=== PATIENT | female | born 1960 | race Two or more races ===

== ENCOUNTER → 2016-11-17 | Outpatient (CLI) | payer MEDICAID | LOC: WI 12:52 | PROVIDERS: ATTEND Physician Assistant | DX: Z12.31 Encounter for screening mammogram for malignant neoplasm of breast (principal) | CPT/HCPCS: 77067; G0202 ==

== ENCOUNTER → 2016-11-17 | Outpatient (CLI) | payer MEDICAID ==
--- NOTE | 2016-11-17 12:34 | RADIOLOGY REPORT (SQ) ---
EXAM DESCRIPTION: HIP LEFT AP/LATERAL COMPLETED DATE/TIME: 11/17/2016 11:58 am REASON FOR STUDY: LEFT HIP PAIN M25.552 PAIN IN LEFT HIP COMPARISON: None. NUMBER OF VIEWS: Two views. TECHNIQUE: AP pelvis and additional frog-leg view of the left hip. LIMITATIONS: None. FINDINGS: MINERALIZATION: Osteopenic LEFT HIP: No fracture or dislocation. No significant joint space narrowing or bony spurring. RIGHT HIP: No fracture or dislocation. No significant joint space narrowing or bony spurring. PUBIS AND ISCHIUM: No fracture. PELVIS: No fracture. SACRUM: No fracture or dislocation. No worrisome bone lesions. LOWER LUMBAR SPINE: Post lower lumbar fusion at L5-S1. Advanced degenerative disc changes left great er than right at L4-5 SOFT TISSUES: No findings. OTHER: No other significant finding. IMPRESSION: Negative study of the pelvis and left hip. Degenerative disc changes at L4-5. Prior fusion at L5-S1 TECHNICAL DOCUMENTATION: JOB ID: [id number] [employer]- All Rights Reserved
== END ==
LOC: OD 11:43
PROVIDERS: ATTEND Physician Assistant
DX: M25.552 Pain in left hip (principal)

== ENCOUNTER → 2017-07-20 | Outpatient (CLI) | payer MEDICAID ==
--- NOTE | 2017-07-20 08:49 | RADIOLOGY REPORT (SQ) ---
EXAM DESCRIPTION: U/S ABDOMEN LIMITED W/O DOP COMPLETED DATE/TIME: 07/20/2017 8:07 am REASON FOR STUDY: RUQ PAIN (R10.11) R10.11 RIGHT UPPER QUADRANT PAIN COMPARISON: None. TECHNIQUE: Dynamic and static grayscale images acquired of the abdomen and recorded on PACS. Additio nal selected color Doppler and spectral images recorded. LIMITATIONS: None. FINDINGS: PANCREAS: Midline pancreas unremarkable LIVER: Diffuse increased echogenicity from fatty infiltration. Liver difficult to penetrate with the ultrasound energy. There is focal sparing at the gallbladder fossa. LIVER VASCULATURE: Normal directional flow of the main portal vein and hepatic veins. GALLBLADDER: Contracted, multiple stones. Borderline wall thickening. ULTRASOUND-DETECTED SUGGS'S SIGN: Negative. INTRAHEPATIC DUCTS AND COMMON DUCT: CBD and intrahepatic ducts normal caliber. No filling defects. INFERIOR VENA CAVA: Normal flow. AORTA: No aneurysm. RIGHT KIDNEY: Normal size. Normal echogenicity. No solid or suspicious masses. No hydronephrosis. No calcifications. PERITONEAL AND RIGHT PLEURAL SPACE: No ascites or effusions. OTHER: No other significant findings. IMPRESSION: Fatty liver with focal sparing along the gallbladder fossa Stones in the gallbladder TECHNICAL DOCUMENTATION: JOB ID: [id number] [employer]- All Rights Reserved Reading location - IP/workstation name: [email or web address]
== END ==
LOC: RAD 07:42
PROVIDERS: ATTEND Physician Assistant
DX: K80.20 Calculus of gallbladder without cholecystitis without obstruction (principal); R10.11 Right upper quadrant pain; K76.0 Fatty (change of) liver, not elsewhere classified
CPT/HCPCS: 76705

== ENCOUNTER 2017-08-16 05:19 | Day surgery (SDC) | payer MEDICAID ==
--- NOTE | 2017-08-09 12:34 | RADIOLOGY REPORT (SQ) ---
EXAM DESCRIPTION: CHEST PA/LATERAL COMPLETED DATE/TIME: 08/09/2017 9:31 am REASON FOR STUDY: PRE OP COMPARISON: None. EXAM PARAMETERS: NUMBER OF VIEWS: two views TECHNIQUE: Digital Frontal and Lateral radiographic views of the chest acquired. RADIATION DOSE: NA LIMITATIONS: none FINDINGS: LUNGS AND PLEURA: No opacities, masses or pneumothorax. No pleural effusion. MEDIASTINUM AND HILAR STRUCTURES: No masses or contour abnormalities. HEART AND VASCULAR STRUCTURES: Heart normal size. No evidence for failure. BONES: No acute findings. HARDWARE: None in the chest. OTHER: No other significant finding. IMPRESSION: NO SIGNIFICANT RADIOGRAPHIC FINDING IN THE CHEST. TECHNICAL DOCUMENTATION: JOB ID: [id number] [employer]- All Rights Reserved Reading location - IP/workstation name: [email or web address]
--- NOTE | 2017-08-09 13:43 | EKG REPORT ---
SEVERITY:- NORMAL ECG - SINUS RHYTHM : Confirmed by: Dilshad Magallanes MD 09-Aug-2017 13:42:12
[~2017-08-16 05:19] MED LIST: ACETAMINOPHEN 325 MG TABLET PO PRN; LIDOCAINE 0.5% INJ-PF (5 MG/ML) 50 ML SDV SUBCUT PRN; NORMAL SALINE 1000 ML (RENAL PATIENTS) IV PRN; VANCOMYCIN HCL 1,000 MG in DEXTROSE 5%-WATER 250 ML IV PRN
[2017-08-16] MEDS ORDERED: BUPIVACAINE HCL 0.25 % INJ/PF (2.5 MG/1 ML) 30 ML VIAL ONE (06:31)
[2017-08-16] MEDS ORDERED: FENTANYL CITRATE INJ/PF 100 MCG/2 ML AMPUL ONE (06:41)
[2017-08-16] MEDS ORDERED: LIDOCAINE 2% INJ-PF (20 MG/ML) 10 ML AMPUL ONE (06:41)
[2017-08-16] MEDS ORDERED: ONDANSETRON HCL INJ/PF 4 MG/2 ML SDV ONE (06:42)
[2017-08-16] MEDS ORDERED: MIDAZOLAM 2 MG/2 ML INJ ONE (06:42)
[2017-08-16] MEDS ORDERED: ACETAMINOPHEN 1,000 MG/100 ML RTUPB IV ONE (06:42)
[2017-08-16] MEDS ORDERED: DEXAMETHASONE SOD PHOSPHATE INJ 4 MG/1 ML VIAL ONE (06:42)
[2017-08-16] MEDS ORDERED: PROPOFOL INJ 200 MG/20 ML VIAL IV ONE (06:42)
[2017-08-16] MEDS ORDERED: OXYCODONE-ACETAMINOPHEN 5-325 MG TABLET PO PRN ×2 (07:46)
[2017-08-16] MEDS ORDERED: MORPHINE SULFATE 10 MG/ML INJ IV PRN (07:46)
[2017-08-16] MEDS ORDERED: PROMETHAZINE HCL INJ 25 MG/1 ML VIAL IV PRN ×2 (07:46)
[2017-08-16] MEDS ORDERED: MEPERIDINE HCL/PF INJ 25 MG/1 ML DISP.SYRIN IV PRN (07:46)
[2017-08-16] MEDS ORDERED: ONDANSETRON HCL INJ/PF 4 MG/2 ML SDV IV PRN (07:46)
[2017-08-16] MEDS ORDERED: DIPHENHYDRAMINE HCL 50 MG/ML VIAL IV PRN (07:46)
[2017-08-16] MEDS ORDERED: FENTANYL CITRATE INJ/PF 100 MCG/2 ML AMPUL IV PRN ×3 (07:46)
--- NOTE | 2017-08-16 08:38 | Discharge Summary ---
Discharge Summary (SDC) - Discharge Final Diagnosis: symptomatic cholelithiasis Condition: Stable Treatment or Instructions: Discharge home. Diet as tolerated. Activity: No lifting greater than 10 pounds 2 weeks. Okay to shower on Sunday, wash incisions with soap and water. No tub baths or swimming pools 2 weeks. Follow-up at [facility] in 7-10 days. Referrals: YENIFER MO MD [Primary Care Provider] - Respiratory Treatments at Home: Deep Breathing/Coughing, Incentive Spirometer Discharge Activity: No Lifting Over 10 Pounds Home Care Assistance: None Needed Report the Following to Your Physician Immediately: Shortness of Breath, Nausea , Vomiting, Increase in Pain, Fever over 101 Degrees, Redness, Swelling, Warmth
[2017-08-16] MEDS ORDERED: HYDROCODONE/ACETAMINOPHEN 10-325 MG TABLET ONE (09:51)
[2017-08-16 10:44] VITALS: BP 126/60
[2017-08-16] MEDS ORDERED: METOCLOPRAMIDE HCL INJ/PF 10 MG/2 ML SDV ONE (12:30)
[2017-08-16] MEDS ORDERED: KETOROLAC TROMETHAMINE 60 MG/2 ML SDV ONE (12:30)
[2017-08-16] MEDS ORDERED: VECURONIUM BROMIDE INJ 10 MG VIAL IV ONE (12:30)
[2017-08-16] MEDS ORDERED: NEOSTIGMINE METHYLSULFATE 10 MG/10 ML VIAL ONE (12:30)
[2017-08-16] MEDS ORDERED: SUCCINYLCHOLINE CHLORIDE INJ 200 MG/10 ML VIAL ONE (12:30)
[2017-08-16] MEDS ORDERED: GLYCOPYRROLATE INJ 0.4 MG/2 ML VIAL ONE (12:30)
--- NOTE | 2017-08-16 13:04 | Operative Report ---
Nonrecallable Operative Report DATE OF SURGERY: 08/16/17 PREOPERATIVE DIAGNOSIS: Symptomatic cholelithiasis POSTOPERATIVE DIAGNOSIS: Same as above OPERATION: Laparoscopic cholecystectomy SURGEON: ALLEY LONGORIA ANESTHESIA: GA TISSUE REMOVED OR ALTERED: Gallbladder COMPLICATIONS: None apparent ESTIMATED BLOOD LOSS: Minimal PROCEDURE: Drains/implants: None. Procedure in detail: After informed consent was obtained, the patient was laid in the operating room in the supine position. The area of the abdomen was prepped and draped in a normal sterile fashion. Incision was created in the supraumbilical position. Dissection was carried through the subcutaneous tissue using blunt dissection. The cicatrix was identified, grasped with a Sukhjinder clamp, and retracted upwards. The linea alba fascia was incised sharply. The abdomen was entered sharply. The balloon trocar was inserted, and pneumoperitoneum was achieved. A subxiphoid 5 mm port was placed under direct laparoscopic visualization. 2 more 5 mm ports were placed in the right upper quadrant in similar fashion. Atraumatic graspers were placed in the 5 mm ports. The gallbladder was retracted cephalad and laterally. Dissection was begun in the triangle of Calot. The cystic duct and cystic artery were fully visualized and skeletonized , seeing the liver through the triangle. Once the critical view of safety was obtained, the cystic duct and cystic artery were clipped and cut with arthroscopic instruments. The gallbladder was then removed from the liver using Bovie electrocautery. The gallbladder was then placed into an Endo Catch bag and pulled out the umbilicus. The camera was reinserted. The hilum was inspected and was found to be free of any leakage of blood or bile. The 5 mm trochars were removed under direct laparoscopic visualization. The supraumbilical trocar was removed, and pneumoperitoneum was relieved. The supraumbilical fascia was closed using 0 Vicryl suture in [id number] fashion the overlying skin was closed using 4-0 Vicryl Rapide suture in subcuticular fashion all sponge, instrument, and needle counts were correct 2. Condition: Stable.
== END 2017-08-16 11:00 | disposition home or self-care (01) ==
LOC: OROUT 05:19
PROVIDERS: ATTEND Surgery
DX: K80.10 Calculus of gallbladder with chronic cholecystitis without obstruction (principal); E11.9 Type 2 diabetes mellitus without complications; E78.00 Pure hypercholesterolemia, unspecified; J45.909 Unspecified asthma, uncomplicated; M19.90 Unspecified osteoarthritis, unspecified site; K21.9 Gastro-esophageal reflux disease without esophagitis; Z88.0 Allergy status to penicillin; Z79.899 Other long term (current) drug therapy; Z79.84 Long term (current) use of oral hypoglycemic drugs
CPT/HCPCS: 93005; 82962; 88304 ×2; 71046; 93010; 47562; J2250; J1100; J1885; J3010; J3490 ×3; J2765; J0330; J2405; S0020; J7060; J2704; J3370; J0131; 790

== ENCOUNTER → 2018-01-11 | Outpatient (CLI) | payer MEDICAID ==
--- NOTE | 2018-01-11 09:38 | WOMENS IMAGING REPORT ---
EXAM DESCRIPTION: BILAT SCREENING MAMMO W/CAD COMPLETED DATE/TIME: 01/11/2018 7:51 am REASON FOR STUDY: BILATERAL SCREENING Z12.31 Z12.31 ENCNTR SCREEN MAMMOGRAM FOR MALIGNANT NEOPLASM OF DIMA COMPARISON: 11/17/2016. TECHNIQUE: Standard craniocaudal and mediolateral oblique views of each breast recorded using Zeoa l acquisition. LIMITATIONS: None. FINDINGS: No masses, calcifications or architectural distortion. No areas of suspicion. Read with the assistance of CAD. .[facility] - R2 Cenova Version 1.3 .[facility] - R2 Cenova Version 1.3 .[facility] - R2 Cenova Version 2.4 .[facility] - R2 Cenova Version 2.4 .[facility] - R2 Licensed Veterinary Technician Version 9.2 IMPRESSION: NORMAL MAMMOGRAM. BIRADS 1. BREAST DENSITY: b. There are scattered areas of fibroglandular density. BIRAD: 1 NEGATIVE RECOMMENDATION: ROUTINE SCREENING COMMENT: The patient has been notified of the results by letter per SA requirements. Additional no tification policies are in place for contacting patient with suspicious or incomplete findings. Quality ID #225: The [employer] recommends an annual screening mammogram for women aged 40 years or over. This facility utilizes a reminder system to ensure that all patients receive reminder letters, and/or direct phone calls for appointments. This includes reminders for routine scr eening mammograms, diagnostic mammograms, or other Breast Imaging Interventions when appropriate. Th is patient will be placed in the appropriate reminder system. The [employer] (ACR) has developed recommendations for screening MRI of the breast s in certain patient populations, to be used in conjunction with mammography. Breast MRI surveillanc e may be appropriate for women with more than 20% lifetime risk of developing breast cancer as deter mined by genetic testing, significant family history of the disease, or history of mantle radiation f or Hodgkins Disease. ACR Practice Guidelines 2008. TECHNICAL DOCUMENTATION: FINDING NUMBER: (1) ASSESSMENT: (1) JOB ID: [id number] [employer]- All Rights Reserved Reading location - IP/workstation name: [email or web address]
== END ==
LOC: WI 07:30
PROVIDERS: ATTEND Physician Assistant
DX: Z12.31 Encounter for screening mammogram for malignant neoplasm of breast (principal)
CPT/HCPCS: 77067

== ENCOUNTER 2018-02-26 20:15 | Inpatient (IN) | payer MEDICAID ==
[2018-02-26] MEDS ORDERED: ASPIRIN 81 MG TABLET, CHEWABLE PO ONE (20:25)
[2018-02-26] MEDS ORDERED: DILTIAZEM HCL INJ 25 MG/5 ML VIAL ONE (20:28)
[2018-02-26] MEDS ORDERED: DILTIAZEM HCL INJ 25 MG/5 ML VIAL IV ONE (20:30)
--- NOTE | 2018-02-26 20:38 | ER Document Report ---
ED Cardiac - General Chief Complaint: Chest Pressure Stated Complaint: PALPITATIONS Time Seen by Provider: 02/26/18 20:27 Notes: 57-year-old female patient emergency department chief complaint of shortness of breath, palpitations and chest pain. Pain was radiating up into her neck. Patient states symptoms came on relatively suddenly. Has never had anything like this before. History of chronic pain, diabetes and hyperlipidemia. Followed by Dr. Garcia and his physician's leasing assistant. No recent surgeries. No prior history of DVT or pulmonary embolism. No prior history of heart disease. TRAVEL OUTSIDE OF THE [place] IN LAST 30 DAYS: No - HPI Patient complains to provider of: Chest pain, Chest tightness, Palpitations, Shortness of breath Was the onset of pain: Sudden Chest pain location: Substernal Quality of pain: Constant Chest pain radiation location: Left jaw, Left shoulder Severity now: Severe Severity at worst: Severe Pain level currently: 2 Associated symptoms: Jaw pain, Shortness of breath Relieved by: Nothing Similar symptoms previously: No Recently seen / treated by doctor: No - Related Data Allergies/Adverse Reactions: cephalexin [From Keflex] Adverse Reaction (Verified 02/26/18 20:30) Penicillins Adverse Reaction (Verified 02/26/18 20:30) Past Medical History - General Information source: Patient - Social History Smoking Status: Smoker,Current Status Unk Frequency of alcohol use: None Drug Abuse: None Lives with: Family Family History: Hypertension - Past Medical History Cardiac Medical History: Denies: Hx Coronary Artery Disease, Hx Heart Attack, Hx Hypertension Pulmonary Medical History: Reports: Hx Asthma - MILD, Hx Bronchitis Denies: Hx COPD, Hx Pneumonia Neurological Medical History: Denies: Hx Cerebrovascular Accident, Hx Seizures Endocrine Medical History: Reports: Hx Diabetes Mellitus Type 2 Musculoskeletal Medical History: Reports Hx Arthritis - GENERALIZED - Immunizations Hx Diphtheria, Pertussis, Tetanus Vaccination: Yes Review of Systems - Review of Systems Notes: Constitutional: denies: Chills, Diaphoresis, Fever, Malaise, Weakness EENT: denies: Eye discharge, Blurred vision, Tearing, Double vision, Nose congestion, Nose discharge, Throat swelling, Mouth pain Cardiovascular: Positive for chest pain, palpitations and shortness of breath Respiratory: denies: Cough, Hurts to breathe, Wheezing, positive for shortness of breath Gastrointestinal: denies: Abdominal pain, Diarrhea, Nausea, Vomiting, Black stools, bright red blood in stool Genitourinary: denies: Burning, Dysuria, Discharge, Frequency, Flank pain, Hematuria Musculoskeletal: denies: Joint pain, Joint swelling, Muscle pain, Muscle stiffness, back pain Hematologic/Lymphatic: denies: Anemia, Easy bleeding, Easy bruising, Blood clots Neurological/Psychological: denies: Confusion, Dementia, Depression, Loss of consciousness Skin: No lesions, no masses, no skin breakdown, no abscesses Physical Exam - Vital signs Vitals: Temp 98.8 F 02/26/18 20:25 Interpretation: Tachycardic - General General appearance: Appears well, Alert - HEENT Head: Normocephalic, Atraumatic Eyes: Normal Pupils: PERRL - Respiratory Respiratory status: No respiratory distress Chest status: Nontender Breath sounds: Normal Chest palpation: Normal - Cardiovascular Rhythm: Tachycardia Heart sounds: Normal auscultation Murmur: No - Abdominal Inspection: Normal Distension: No distension Bowel sounds: Normal Tenderness: Nontender Organomegaly: No organomegaly - Back Back: Normal, Nontender - Extremities General upper extremity: Normal inspection, Nontender, Normal color, Normal ROM , Normal temperature General lower extremity: Normal inspection, Nontender, Normal color, Normal ROM , Normal temperature. No: Rhea's sign - Neurological Neuro grossly intact: Yes Cognition: Normal Orientation: AAOx4 Nicole Coma Scale Eye Opening: Spontaneous Nicole Coma Scale Verbal: Oriented [place] Coma Scale Motor: Obeys Commands Nicole Coma Scale Total: 15 Speech: Normal Motor strength normal: LUE, RUE, LLE, RLE Sensory: Normal - Psychological Associated symptoms: Normal affect, Normal mood - Skin Skin Temperature: Warm Skin Moisture: Dry Skin Color: Normal Course - Re-evaluation Re-evalutation: 02/26/18 21:43 seen immediately on arrival. Bedside EKG performed. Patient initially had sinus tachycardia with a heart rate in the 120s on first EKG of her after EKG was obtained I was at the bedside and noted that patient's heart rate was 190. Patient was having shortness of breath. You could see the heart beating extremely fast. Verbal order of 15 mg of diltiazem given. Within 5 minutes of medication being given patient's heart rate began to come down nicely. Patient converted to normal sinus rhythm with a heart rate of 91 on repeat EKG. No signs of ischemia. Labs returned and showed mildly elevated cardiac troponin. Based on the fact the patient is obese, diabetic with supposed hyperlipidemia and there was concern that she would need to be observed as this is never happened before. I have consulted with her primary care doctor, Dr. Garcia who recommends we order a second set of cardiac labs and if it is not going up significantly he will admit her here if it is going up more than expected then he would like her transferred. I anticipate the troponin will go up. Aspirin has been given. Patient is receiving a small fluid bolus at this time. 02/26/18 21:45 Laboratory 02/26/18 02/26/18 02/26/18 20:31 20:31 20:31 WBC 8.9 RBC 4.86 Hgb 14.7 Hct 43.1 MCV 89 MCH 30.3 MCHC 34.2 RDW 12.7 Plt Count 281 Seg Neutrophils % 60.7 Lymphocytes % 29.3 Monocytes % 8.6 Eosinophils % 0.4 Basophils % 1.0 Absolute Neutrophils 5.4 Absolute Lymphocytes 2.6 Absolute Monocytes 0.8 Absolute Eosinophils 0.0 Absolute Basophils 0.1 Sodium 145.5 H Potassium 3.9 Chloride 107 Carbon Dioxide 27 Anion Gap 12 BUN 15 Creatinine 0.75 Est GFR ( Amer) > 60 Est GFR (Non-Af Amer) > 60 Glucose 187 H Calcium 9.9 Total Bilirubin 0.6 Direct Bilirubin 0.4 Neonat Total Bilirubin Not Reportable Neonat Direct Bilirubin Not Reportable Neonat Indirect Bili Not Reportable AST 42 H ALT 42 Alkaline Phosphatase 150 H Creatine Kinase 108 CK-MB (CK-2) 0.49 Troponin I 0.062 Total Protein 8.0 Albumin 4.7 Chest X-Ray 02/26/18 20:25 IMPRESSION: No acute abnormality is identified. 02/26/18 22:56 Chest X-Ray 02/26/18 20:25 IMPRESSION: No acute abnormality is identified. Chest/Abdomen CTA 02/26/18 22:00 IMPRESSION: Cardiomegaly. Negative for pulmonary embolus, thoracic aortic aneurysm, or dissection. Minor scarring in the lung bases. Fatty infiltrative change to the liver. Small hiatal hernia TECHNICAL DOCUMENTATION: Quality ID # 436: Final reports with documentation of one or more dose reduction techniques (e.g., Automated exposure control, adjustment of the mA and/or kV according to patient size, use of iterative reconstruction technique) copyright 2010 [employer]- All Rights Reserved 02/27/18 00:23 Second troponin [address] Garcia. Patient remains chest pain- free and asymptomatic at this time. Normal sinus rhythm. Heart rate still controlled and no more SVT. 02/27/18 00:31 I have consulted with the precinct police captain, Dr. Valdivia. He is comfortable with patient being admitted here. Will proceed with admit at this time. CT scan negative as recorded above. - Vital Signs Vital signs: Temp Pulse Resp BP Pulse Ox 98.8 F 17 131/76 H 98 02/26/18 20:25 02/27/18 00:01 02/27/18 00:01 02/27/18 00:01 - Laboratory Result Diagrams: 02/26/18 20:31 02/26/18 20:31 Laboratory results interpreted by me: 02/26/18 20:31 Sodium 145.5 H Glucose 187 H AST 42 H Alkaline Phosphatase 150 H - EKG Interpretation by Me EKG shows normal: Intervals, QRS Complexes, ST-T Waves Rate: Tachycardia Additional EKG results interpreted by me: 02/26/18 21:45 Repeat EKG #2: Sinus rhythm, heart rate 91, no ST segment elevation or depression. No obvious signs of ischemia. Procedures - Additional Procedures Cardioversion/Defib Time performed: 20:45 Additional Procedures: Cardioversion/defib - Patient in PSVT. Cardioverted with 15 mg of diltiazem Critical Care Note - Critical Care Note Total time excluding time spent on procedures (mins): 35 Comments: Extreme tachycardia, cardioversion Discharge - Discharge Clinical Impression: Paroxysmal SVT (supraventricular tachycardia), Elevated troponin Condition: Good Disposition: ADMITTED INPATIENT Admitting Provider: Jose Unit Admitted: Telemetry
[2018-02-26 20:45] LABS: ABSOLUTE BASOPHILS # (AUTO) 0.1 10^3/uL (0.0-0.2); ABSOLUTE LYMPHOCYTES (AUTO) 2.6 10^3/uL (0.5-4.7); ABSOLUTE MONOCYTES (AUTO) 0.8 10^3/uL (0.1-1.4); ABSOLUTE NEUT (AUTO) 5.4 10^3/uL (1.7-8.2); EOSINOPHILS % (AUTO) 0.4 % (0-6); HEMATOCRIT 43.1 % (36.0-47.0); HEMOGLOBIN 14.7 g/dL (12.0-15.5); LYMPHOCYTES % (AUTO) 29.3 % (13-45); MEAN CORPUSCULAR HEMOGLOBIN 30.3 pg (27.0-33.4); MEAN CORPUSCULAR HGB CONC 34.2 g/dL (32.0-36.0); MEAN CORPUSCULAR VOLUME 89 fl (80-97); MONOCYTES % (AUTO) 8.6 % (3-13); PLATELET COUNT 281 10^3/uL (150-450); RED BLOOD COUNT 4.86 10^6/uL (3.72-5.28); RED CELL DISTRIBUTION WIDTH 12.7 % (11.5-14.0); SEGMENTED NEUTROPHILS % (AUTO) 60.7 % (42-78); TOTAL CELLS COUNTED % (AUTO) 100 %; WHITE BLOOD COUNT 8.9 10^3/uL (4.0-10.5)
[2018-02-26 21:04] LABS: ALANINE AMINOTRANSFERASE 42 U/L (9-52); ALBUMIN 4.7 g/dL (3.5-5.0); ALKALINE PHOSPHATASE 150 U/L (38-126); ANION GAP 12 (5-19); ASPARTATE AMINO TRANSFERASE 42 U/L (14-36); BILIRUBIN,DIRECT 0.4 mg/dL (0.0-0.4); BILIRUBIN,TOTAL 0.6 mg/dL (0.2-1.3); BLOOD UREA NITROGEN 15 mg/dL (7-20); CALCIUM 9.9 mg/dL (8.4-10.2); CARBON DIOXIDE 27 mmol/L (22-30); CHLORIDE 107 mmol/L (98-107); CREATINE KINASE 108 U/L (30-135); GLUCOSE 187 mg/dL (75-110); POTASSIUM 3.9 mmol/L (3.6-5.0); SODIUM 145.5 mmol/L (137-145)
[2018-02-26 21:14] LABS: CREATINE KINASE MB 0.49 ng/mL (<4.55)
[2018-02-26 21:21] LABS: TROPONIN I 0.062 ng/mL
--- NOTE | 2018-02-26 21:27 | RADIOLOGY REPORT (SQ) ---
EXAM DESCRIPTION: XR CHEST 1 VIEW COMPLETED DATE/TME: 02/26/2018 20:25 CLINICAL HISTORY: 57 years Female cp COMPARISON: 08/09/2017. FINDINGS: The cardiomediastinal silhouette appears unremarkable. No consolidating infiltrates or pleural effusions. No pneumothorax. IMPRESSION: No acute abnormality is identified.
[2018-02-26] MEDS ORDERED: NORMAL SALINE 1000 ML 1,000 ML IV ONE (21:38)
[2018-02-26] MEDS ORDERED: NORMAL SALINE 1000 ML 1,000 ML IV PRN (21:50)
[2018-02-26] MEDS ORDERED: DEXTROSE 40% GEL 15 GM TUBE PO PRN ×2 (21:55)
[2018-02-26] MEDS ORDERED: GLUCAGON,HUMAN RECOMB 1 MG INJ IM PRN (21:55)
[2018-02-26] MEDS ORDERED: DEXTROSE 50%-WATER 25 GM/50 ML DISP.SYRIN IV PRN ×2 (21:55)
[2018-02-26] MEDS ORDERED: INSULIN LISPRO 100 UNIT/ML 3 ML VIAL SUBCUT PRN (21:55)
[2018-02-26] MEDS ORDERED: DILTIAZEM HCL 30 MG TABLET PO ONE (22:00)
[2018-02-26 22:41] LABS: FREE T3 3.27 pg/mL (2.77-5.27); FREE T4 (FREE THYROXINE) 1.25 ng/dL (0.78-2.19)
--- NOTE | 2018-02-26 22:48 | RADIOLOGY REPORT (SQ) ---
EXAM DESCRIPTION: CT CHEST ANGIOGRAPHY WITHOUT THEN WITH IV CONTRAST COMPLETED DATE/TME: 02/26/2018 22:00 CLINICAL HISTORY: 57 years, Female, cp, tachyc COMPARISON: None. TECHNIQUE: 536 Images stored on PACS. All CT scanners at this facility use dose modulation, iterative reconstruction, and/or weight based dosing when appropriate to reduce radiation dose to as low as reasonably achievable (ALARA). Axial CT images were obtained with coronal and sagittal MIPS reconstructions [facility]: Dose Right [facility]: CareDose [facility]: Dose Right [facility]: Teradose 4D [facility]: [employer] LIMITATIONS: None. FINDINGS: Contrast bolus is suboptimal. However there is no large or central pulmonary embolus. Evaluation of distal arterial branches is limited. No convincing evidence for pulmonary most. Negative for thoracic aortic aneurysm or dissection. Small hiatal hernia. Cardiomegaly. No mediastinal or hilar adenopathy. Limited evaluation of the upper abdomen shows postcholecystectomy changes. Fatty infiltrative change to the liver. Osseous structures are grossly intact. No pneumothorax. The visualized airways are patent. Minor scarring in the lung bases. Lungs are otherwise clear IMPRESSION: Cardiomegaly. Negative for pulmonary embolus, thoracic aortic aneurysm, or dissection. Minor scarring in the lung bases. Fatty infiltrative change to the liver. Small hiatal hernia TECHNICAL DOCUMENTATION: Quality ID # 436: Final reports with documentation of one or more dose reduction techniques (e.g., Automated exposure control, adjustment of the mA and/or kV according to patient size, use of iterative reconstruction technique) copyright 2011 [employer]- All Rights Reserved
[2018-02-26 22:54] LABS: THYROID STIMULATING HORMONE 2.33 uIU/mL (0.47-4.68)
--- NOTE | 2018-02-26 23:36 | EKG REPORT ---
SEVERITY:- NORMAL ECG - SINUS RHYTHM : Confirmed by: Sara Valdivia MD 26-Feb-2018 23:35:24
--- NOTE | 2018-02-26 23:37 | EKG REPORT ---
SEVERITY:- DEFECTIVE ECG - SINUS TACHYCARDIA MULTIPLE ATRIAL PREMATURE COMPLEXES V1 AND V2 LEADS INTERCHANGED.REPEAT EKG. : Confirmed by: Sara Valdivia MD 26-Feb-2018 23:36:29
[2018-02-27 00:03] LABS: CREATINE KINASE MB 0.51 ng/mL (<4.55)
[2018-02-27 00:20] LABS: TROPONIN I 0.132 ng/mL
[2018-02-27] MEDS: DILTIAZEM HCL 30 MG TABLET PO SCH ×3 (05:31→21:18)
[2018-02-27 05:54] LABS: HEMATOCRIT 36.4 % (36.0-47.0); MEAN CORPUSCULAR HEMOGLOBIN 30.3 pg (27.0-33.4); MEAN CORPUSCULAR HGB CONC 34.4 g/dL (32.0-36.0); MEAN CORPUSCULAR VOLUME 88 fl (80-97); PLATELET COUNT 203 10^3/uL (150-450); RED BLOOD COUNT 4.13 10^6/uL (3.72-5.28); RED CELL DISTRIBUTION WIDTH 12.5 % (11.5-14.0); WHITE BLOOD COUNT 7.2 10^3/uL (4.0-10.5)
[2018-02-27 05:56] LABS: HEMOGLOBIN 12.5 g/dL (12.0-15.5)
[2018-02-27 06:08] LABS: ALANINE AMINOTRANSFERASE 32 U/L (9-52); ALBUMIN 3.3 g/dL (3.5-5.0); ALKALINE PHOSPHATASE 99 U/L (38-126); ANION GAP 6 (5-19); ASPARTATE AMINO TRANSFERASE 25 U/L (14-36); BILIRUBIN,DIRECT 0.3 mg/dL (0.0-0.4); BILIRUBIN,TOTAL 0.6 mg/dL (0.2-1.3); BLOOD UREA NITROGEN 10 mg/dL (7-20); CALCIUM 8.7 mg/dL (8.4-10.2); CARBON DIOXIDE 26 mmol/L (22-30); CHLORIDE 112 mmol/L (98-107); CHOLESTEROL 152.87 mg/dL (0-200); CREATINE KINASE 98 U/L (30-135); GLUCOSE 109 mg/dL (75-110); POTASSIUM 3.8 mmol/L (3.6-5.0); SODIUM 144.1 mmol/L (137-145); TOTAL PROTEIN 5.9 g/dL (6.3-8.2); TRIGLYCERIDES 81 mg/dL (<150)
[2018-02-27 06:18] LABS: CREATINE KINASE MB 0.75 ng/mL (<4.55); TROPONIN I 0.119 ng/mL
[2018-02-27 06:19] LABS: DIRECT LDL 86 mg/dL (<100)
[2018-02-27] MEDS ORDERED: NORMAL SALINE 1000 ML 1,000 ML IV PRN (08:53)
--- NOTE | 2018-02-27 08:53 | PDOC H&P ---
History of Present Illness Admission Date/PCP: 02/26/18 22:07 YENIFER MO MD Patient complains of: Chest pain palpitation History of Present Illness: LYNDSEY BILLINGSLEY is a 57 year old female This is a 57-year-old female with a history of the type 2 diabetes mellitus recent A1c is 6.4 history of the hypertension's history of the hyperlipidemia with the recent LDL is less than 100 and a history of the chronic back issues came to the emergency department with a sudden onset of the shortness of the breath and palpitations and a chest pain In the emergency department patient's found to SVT with a heart rate is 190 and patient is giving the Cardizem 25 mg and converted to the sinus rhythm Patient CT angiogram is negative Patient's initial troponins were 0.06 and the second 1 is 0.132 and the ER physician discussed with the Dr. Valdivia and suggest to monitor the patient here When I saw the patient patient heart rate is all normal denied any chest pain denied any shortness of the breath Patient is denied any using any [id number] medications Patient is denied any alcohol Patient denied any heart disease in the past Past Medical History Cardiac Medical History: Reports: Hyperlipidema, Hypertension Denies: Coronary Artery Disease, Myocardial Infarction Pulmonary Medical History: Reports: Asthma - MILD, Bronchitis Denies: Chronic Obstructive Pulmonary Disease (COPD), Pneumonia Neurological Medical History: Denies: Seizures Endocrine Medical History: Reports: Diabetes Mellitus Type 2 Musculoskeltal Medical History: Reports: Arthritis - GENERALIZED Hematology: Denies: Anemia Past Surgical History Past Surgical History: Reports: Cholecystectomy, Other - Back surgery Social History Lives with: Family Smoking Status: Never Smoker Frequency of Alcohol Use: Occasional Hx Recreational Drug Use: No Hx Prescription Drug Abuse: No - Advance Directive Resuscitation Status: Full Code Family History Family History: Reviewed & Not Pertinent, Hypertension Parental Family History Reviewed: Yes Children Family History Reviewed: Yes Sibling(s) Family History Reviewed.: Yes Medication/Allergy Allergies/Adverse Reactions: cephalexin [From Keflex] Adverse Reaction (Verified 02/26/18 20:30) Penicillins Adverse Reaction (Verified 02/26/18 20:30) Review of Systems Constitutional: ABSENT: chills, fever(s), headache(s), weight gain, weight loss Eyes: ABSENT: visual disturbances Ears: ABSENT: hearing changes Cardiovascular: PRESENT: chest pain, dyspnea on exertion, palpitations. ABSENT : edema, orthropnea Respiratory: ABSENT: cough, hemoptysis Gastrointestinal: ABSENT: abdominal pain, constipation, diarrhea, hematemesis, hematochezia, nausea, vomiting Genitourinary: ABSENT: dysuria, hematuria Musculoskeletal: ABSENT: joint swelling Integumentary: ABSENT: rash, wounds Neurological: ABSENT: abnormal gait, abnormal speech, confusion, dizziness, focal weakness, syncope Psychiatric: ABSENT: anxiety, depression, homidical ideation, suicidal ideation Endocrine: ABSENT: cold intolerance, heat intolerance, menstrual abnormalities, polydipsia, polyuria Hematologic/Lymphatic: ABSENT: easy bleeding, easy bruising, lymphadenopathy Physical Exam Vital Signs: Temp Pulse Resp BP Pulse Ox 97.9 F 68 18 120/54 L 100 02/27/18 07:53 02/27/18 07:53 02/27/18 07:53 02/27/18 07:53 02/27/18 07:53 Intake & Output 02/26/18 02/27/18 02/28/18 06:59 06:59 06:59 Intake Total 1000 Balance 1000 Weight 90.4 kg General appearance: PRESENT: no acute distress, well-developed, well-nourished Head exam: PRESENT: atraumatic, normocephalic Eye exam: PRESENT: conjunctiva pink, EOMI, PERRLA. ABSENT: scleral icterus Ear exam: PRESENT: normal external ear exam Mouth exam: PRESENT: moist, tongue midline Neck exam: PRESENT: full ROM. ABSENT: carotid bruit, JVD, lymphadenopathy, thyromegaly Respiratory exam: PRESENT: clear to auscultation diana Cardiovascular exam: PRESENT: RRR. ABSENT: diastolic murmur, rubs, systolic murmur Pulses: PRESENT: normal dorsalis pedis pul, +2 pedal pulses bilateral Vascular exam: PRESENT: normal capillary refill GI/Abdominal exam: PRESENT: normal bowel sounds, soft. ABSENT: distended, guarding, mass, organolmegaly, rebound, tenderness Rectal exam: PRESENT: deferred Extremities exam: ABSENT: pedal edema Neurological exam: PRESENT: alert, awake, oriented to person, oriented to place , oriented to time, oriented to situation, CN II-XII grossly intact. ABSENT: motor sensory deficit Psychiatric exam: PRESENT: appropriate affect, normal mood. ABSENT: homicidal ideation, suicidal ideation Skin exam: PRESENT: dry, intact, warm. ABSENT: cyanosis, rash Results Laboratory Results: 02/27/18 05:19 02/27/18 05:19 02/27/18 02/27/18 05:19 05:19 WBC 7.2 RBC 4.13 Hgb 12.5 D Hct 36.4 MCV 88 MCH 30.3 MCHC 34.4 RDW 12.5 Plt Count 203 Sodium 144.1 Potassium 3.8 Chloride 112 H Carbon Dioxide 26 Anion Gap 6 BUN 10 Creatinine 0.54 Est GFR ( Amer) > 60 Est GFR (Non-Af Amer) > 60 Glucose 109 Calcium 8.7 Magnesium 2.0 Total Bilirubin 0.6 AST 25 ALT 32 Alkaline Phosphatase 99 Total Protein 5.9 L Albumin 3.3 L Triglycerides 81 Cholesterol 152.87 LDL Cholesterol Direct 86 VLDL Cholesterol 16.0 HDL Cholesterol 67 02/26/18 02/26/18 02/26/18 22:12 22:12 23:20 Creatine Kinase Cancelled 91 CK-MB (CK-2) Cancelled Troponin I Cancelled 02/26/18 02/27/18 02/27/18 23:20 05:19 05:19 Creatine Kinase 98 CK-MB (CK-2) 0.51 0.75 Troponin I 0.132 0.119 Impressions: Chest X-Ray 02/26/18 20:25 IMPRESSION: No acute abnormality is identified. Chest/Abdomen CTA 02/26/18 22:00 IMPRESSION: Cardiomegaly. Negative for pulmonary embolus, thoracic aortic aneurysm, or dissection. Minor scarring in the lung bases. Fatty infiltrative change to the liver. Small hiatal hernia TECHNICAL DOCUMENTATION: Quality ID # [id number]: Final reports with documentation of one or more dose reduction techniques (e.g., Automated exposure control, adjustment of the mA and/or kV according to patient size, use of iterative reconstruction technique) copyright 2011 [employer]- All Rights Reserved Assessment & Plan - Diagnosis (1) Chest pain Qualifiers: Chest pain type: unspecified Qualified Code(s): R07.9 - Chest pain, unspecified Is this a current diagnosis for this admission?: Yes Plan: CT angiogram is negative Patient's cardiac enzyme is elevated possible most likely due to the SVT will consult the cardiology order the echocardiogram but continues to monitor the patient (2) Hypertension Qualifiers: Hypertension type: essential hypertension Qualified Code(s): I10 - Essential (primary) hypertension Is this a current diagnosis for this admission?: Yes Plan: stable (3) Hyperlipidemia Qualifiers: Hyperlipidemia type: unspecified Qualified Code(s): E78.5 - Hyperlipidemia , unspecified Is this a current diagnosis for this admission?: Yes (4) Type 2 diabetes mellitus Qualifiers: Diabetes mellitus termite helper insulin use: without usp use Is this a current diagnosis for this admission?: Yes Plan: on metformin and sliding scale currently hold the metformin due to the IV contrast (5) Chronic back pain Qualifiers: Back pain location: low back pain Is this a current diagnosis for this admission?: Yes (6) Elevated troponin Is this a current diagnosis for this admission?: Yes Plan: Possible most likely elevated heart rate but needs to rule out the acute coronary syndrome will order the 2D echocardiogram consult the cardiology continues to aspirin (7) Paroxysmal SVT (supraventricular tachycardia) Is this a current diagnosis for this admission?: Yes Plan: Currently converted to the sinus rhythm the patient on a Cardizem 30 mg p.o. every 8 - Time Time Spent: 30 to 50 Minutes Medications reviewed and adjusted accordingly: Yes Anticipated discharge: Home Within: Other - Inpatient Certification Based on my medical assessment, after consideration of the patient's comorbidities, presenting symptoms, or acuity I expect that the services needed warrant INPATIENT care.: Yes I certify that my determination is in accordance with my understanding of Medicare's requirements for reasonable and necessary INPATIENT services [42 CFR 412.3e].: Yes Medical Necessity: Need Close Monitoring Due to Risk of Patient Decompensation, Need For Continuous Telemetry Monitoring Post Hospital Care: D/C Medical Office Assistant Instructor Documentation - Plan Summary Plan Summary: Admit the patient in IMCU consult the cardiology order the echocardiogram continues to monitor the patient
[2018-02-27] MEDS: ENOXAPARIN SODIUM INJ 40 MG/0.4 ML DISP.SYRIN SUBCUT SCH (09:20)
[2018-02-27] MEDS: ACETAMINOPHEN 325 MG TABLET PO PRN ×2 (09:20→13:05)
[2018-02-27 12:59] LABS: CREATINE KINASE MB 0.66 ng/mL (<4.55); TROPONIN I 0.048 ng/mL
[2018-02-27] MEDS: GABAPENTIN 400 MG CAPSULE PO SCH (21:19)
[2018-02-27] MEDS ORDERED: SIMVASTATIN 40 MG TABLET PO SCH (22:00)
--- NOTE | 2018-02-27 22:17 | PDOC CONSULTATION ---
Consultation-Blank Consultation: CARDIOLOGY CONSULTATION by Dr. Sara Valdivia on 02/27/2018. Patient seen at 11:30 AM. 60 minutes spent on this patient with more than 50% of time spent in direct patient care. REASON FOR CONSULTATION: Patient with palpitations found to have SVT, and mildly elevated troponin levels. . HISTORY OF PRESENT ILLNESS: Patient is a 57-year-old female, with no history of diabetes mellitus type 2 [id number], hyperlipidemia, and history of chronic back pain, states that she was watching TV at home and had sudden onset of palpitations associated shortness of breath and chest pain which she says was in the left front of the chest with radiation up into the neck. The initial episode lasted for about an hour. She has recurrence of this with the stimulus associated symptoms that lasted for another hour. The third episode lasted longer and her symptoms are more severe and hence the patient came to the emergency room in the emergency room the ER physician saw the patient having SVT at rate of 190 bpm. This has been documented on a monitor strip, which I reviewed and agreed. The patient was given Cardizem intravenously, and the patient converted to sinus tachycardia. At present the patient had no chest pain or discomfort. Her heart rate is much well controlled. She denies any PND orthopnea. Note that the patient's troponin levels were mildly elevated and are now trending down. The patient states that she has not had such symptoms in the past. She did have along with the chest pain and shortness of breath dizziness and near syncope, but no syncope. There is no PND or orthopnea. There is no leg edema. There is no TIA CVA symptoms. The patient denies any cough or wheezing. PAST MEDICAL HISTORY: The patient states although at times her blood pressure has been high she has not had a diagnosis of hypertension, and is not on hyper antihypertensives. She has history of childhood asthma, with no recent recurrence. She has allergies and takes Singulair for that. She has a history of diabetes mellitus type 2 [id number]. Her last hemoglobin A1c was 6.4 here in the hospital is 5.8. She also has a history of hyperlipidemia, and as per the attending physician's note her LDL cholesterol has been below 100. Her lipid levels are very good in this admission. There is no history of chronic kidney disease. She has a history of chronic back pain. She has no history of thyroid disease. There is no history of TIA or CVA. No history of seizures. PAST SURGICAL HISTORY. Cholecystectomy, and back surgery FAMILY HISTORY: Is positive for hypertension. Negative for coronary artery disease or arrhythmias or congestive heart failure. No history of sudden in the family. ALLERGIES: The patient is allergic to Keflex and penicillins.. SOCIAL HISTORY: The patient does not smoke. There is no history of EtOH abuse. The patient drinks about 3 cups of caffeinated coffee every day. There is no excessive caffeine intake. DISPOSITION: The patient is a full code her daughter is her surrogate healthcare decision maker. REVIEW SYSTEMS: CONSTITUTIONAL: Denies any fever chills or rigors. Did feel fatigued and weak when she had the palpitations. HEAD: No history of headaches or head injury. EYES: No history of amblyopia diplopia. No history of amaurosis fugax. EARS: No history of hearing loss. No history of tinnitus. No history of vertigo. NOSE: No history of hayfever. No history of nosebleeds. MOUTH: No history of altered taste sensation. No ulcers in the mouth. No bleeding from the gums. THROAT: No history of odynophagia or dysphagia. No recurrent sore throats SKIN: No history of pruritus. No history of yellowish discoloration of the skin. No history of skin cancer.. No history of psoriasis. NECK: No history of neck pain. No history of symptoms of C-spine arthritis. No history of swelling in the neck. LUNGS: No history of cough or wheezing or sputum production. History of childhood asthma with no recent recurrences. No history of COPD. No history of sleep apnea. No history of pulmonary embolism. No history of hemoptysis. No history of pleuritic chest pain. No recent wheezing. HEART: No history of coronary artery disease, and angina or TN. No history of congestive heart failure. First episode of palpitations which revealed a supraventricular tachycardia. No prior such incidents. No history of PND orthopnea or leg edema. Near syncope and dizziness but no davi syncope when she had the SVT. No history of congenital heart disease. ABDOMEN: No history of fatty food intolerance. No history of GI bleed. No history of ascites. No history of liver problems. No history of abdominal pain. No history of altered bowel movements. No history of GERD or hiatal hernia. ENDOCRINE: No history of thyroid disease. No history of heat or cold intolerance. No history of polydipsia polyuria. History of diabetes mellitus type 2 [id number]-shzugtbcr. No diabetic complications. No history of hirsutism. No history of excessive sweating. RENAL: No history of chronic kidney disease. No history of recurrent UTIs. No history of hematuria pyuria dysuria. MUSCULOSKELETAL: Denies collagen vascular disease. History of chronic back pain. INSTRUCTOR DECORATING: No history of TIA or CVA. No history of headaches migraines or seizures. No history of gait imbalance. PSYCHIATRIC: No history of anxiety or depression. No suicidal ideation. No homicidal ideation. VASCULAR: No history of calf or buttock claudication. No history of DVT. HEMATOLOGICAL: Denies bleeding diathesis. No history of clotting disorders. No history of blood dyscrasias. No history of anemia. PHYSICAL EXAMINATION: The patient is moderately obese. At present in no acute distress. She is well-groomed. Selected Entries 02/27/18 11:40 Temperature 98.2 F Temperature Oral Source Pulse Rate 69 Respiratory 16 Rate Blood Pressure 122/62 Blood Pressure 82 Mean BP Location Right Arm BP Position Supine O2 Sat by Pulse 99 Oximetry Oxygen Delivery Room Air Method HEAD: Atraumatic, normocephalic. EYES: Pupils equal round and reactive to light, extraocular movements intact, sclera anicteric, conjunctiva are normal. ENT: TMs normal, nares patent, oropharynx clear without exudates. Moist mucous membranes. NECK: Normal range of motion, supple without lymphadenopathy or JVD. Carotids are equal there is no bruits. There is no thyromegaly. There is no accessory muscles of respiration in use. Trachea central LUNGS: Breath sounds clear to auscultation bilaterally and equal. No wheezes rales or rhonchi. On palpation there is no chest wall tenderness. HEART: S1-S2 is heard. S1 is of normal intensity. There is no S3 gallop. There is no S4 gallop. There is systolic murmur left sternal border and apex. There is no rub.. ABDOMEN: Soft, nontender, normoactive bowel sounds. There is no hepatosplenic megaly no guarding, no rebound. No masses appreciated. EXTREMITIES: Normal range of motion, no pitting or edema. No clubbing or cyanosis. Femorals are well felt. There is no femoral bruits. Leg pulses are well felt. There is no DVT or cellulitis. There is no calf tenderness NEUROLOGICAL: Cranial nerves II through XII grossly intact. Normal speech, normal gait. The patient is awake alert oriented x3 with no focal deficits. PSYCH: Normal mood, normal affect. The patient judgment and insight are intact SKIN: Warm, Dry, normal turgor, no rashes or lesions noted. There is no petechia or ecchymosis. 02/26/18 02/26/18 02/26/18 20:31 20:31 20:31 WBC Hgb Hct MCV Plt Count Sodium Potassium Chloride Carbon Dioxide BUN Creatinine Est GFR (Non-Af Amer) Glucose POC Glucose Hemoglobin A1c % Calcium Magnesium Total Bilirubin Direct Bilirubin Neonat Total Bilirubin Neonat Direct Bilirubin Neonat Indirect Bili AST ALT Alkaline Phosphatase Creatine Kinase CK-MB (CK-2) 0.49 Troponin I 0.062 NT-Pro-B Natriuret Pep 46 Total Protein Albumin Triglycerides Cholesterol LDL Cholesterol Direct VLDL Cholesterol HDL Cholesterol TSH 2.33 Free T4 1.25 Free T3 pg/mL 3.27 02/26/18 02/27/18 02/27/18 23:20 05:19 05:19 WBC Hgb Hct MCV Plt Count Sodium 144.1 Potassium 3.8 Chloride 112 H Carbon Dioxide 26 BUN 10 Creatinine 0.54 Est GFR (Non-Af Amer) > 60 Glucose 109 POC Glucose Hemoglobin A1c % Calcium 8.7 Magnesium 2.0 Total Bilirubin 0.6 Direct Bilirubin 0.3 Neonat Total Bilirubin Not Reportable Neonat Direct Bilirubin Not Reportable Neonat Indirect Bili Not Reportable AST 25 ALT 32 Alkaline Phosphatase 99 Creatine Kinase 98 CK-MB (CK-2) 0.51 0.75 Troponin I 0.132 0.119 NT-Pro-B Natriuret Pep Total Protein 5.9 L Albumin 3.3 L Triglycerides 81 Cholesterol 152.87 LDL Cholesterol Direct 86 VLDL Cholesterol 16.0 HDL Cholesterol 67 TSH Free T4 Free T3 pg/mL 02/27/18 02/27/18 02/27/18 05:19 05:19 11:39 WBC 7.2 Hgb 12.5 D Hct 36.4 MCV 88 Plt Count 203 Sodium Potassium Chloride Carbon Dioxide BUN Creatinine Est GFR (Non-Af Amer) Glucose POC Glucose 133 H Hemoglobin A1c % 5.8 Calcium Magnesium Total Bilirubin Direct Bilirubin Neonat Total Bilirubin Neonat Direct Bilirubin Neonat Indirect Bili AST ALT Alkaline Phosphatase Creatine Kinase CK-MB (CK-2) Troponin I NT-Pro-B Natriuret Pep Total Protein Albumin Triglycerides Cholesterol LDL Cholesterol Direct VLDL Cholesterol HDL Cholesterol TSH Free T4 Free T3 pg/mL 02/27/18 02/27/18 11:43 11:43 WBC Hgb Hct MCV Plt Count Sodium Potassium Chloride Carbon Dioxide BUN Creatinine Est GFR (Non-Af Amer) Glucose POC Glucose Hemoglobin A1c % Calcium Magnesium Total Bilirubin Direct Bilirubin Neonat Total Bilirubin Neonat Direct Bilirubin Neonat Indirect Bili AST ALT Alkaline Phosphatase Creatine Kinase 108 CK-MB (CK-2) 0.66 Troponin I 0.048 NT-Pro-B Natriuret Pep Total Protein Albumin Triglycerides Cholesterol LDL Cholesterol Direct VLDL Cholesterol HDL Cholesterol TSH Free T4 Free T3 pg/mL Home Meds Table Gabapentin [Neurontin 400 mg Capsule] 400 mg PO Q8 02/27/18 Loratadine [Claritin 10 mg Tablet] 10 mg PO DAILY 02/27/18 Metformin HCl [Glucophage 500 mg Tablet] 500 mg PO BID 02/27/18 Montelukast Sodium [Singulair 10 mg Tablet] 10 mg PO QPM 02/27/18 Simvastatin [Zocor 40 mg Tablet] 40 mg PO QHS 02/27/18 02/26/18 20:25 Aspirin [Aspirin 81 mg Chewable Tablet] 324 mg PO NOW ONE 02/26/18 20:28 Diltiazem HCl [Cardizem Inj 25 mg/5 ml Vial] 25 mg .ROUTE .STK-MED ONE 02/26/18 20:30 Diltiazem HCl [Cardizem Inj 25 mg/5 ml Vial] 15 mg IV NOW ONE 02/26/18 21:38 Normal Saline 1000 ml [NaCl 0.9% 1000 ml IV Soln] 1,000 ml IV BOLUS 02/26/18 21:50 Acetaminophen [Tylenol 325 mg Tablet] 650 mg PO Q4HP PRN 02/26/18 21:55 Dextrose 50%-Water [Dextrose Inj 50% Syringe (25 gm/50 ml)] 12.5 gm IV PRN PRN Dextrose 50%-Water [Dextrose Inj 50% Syringe (25 gm/50 ml)] 25 gm IV PRN PRN Dextrose [Glutose 40% Gel 15 gm Tube] 15 gm PO PRN PRN Dextrose [Glutose 40% Gel 15 gm Tube] 30 gm PO PRN PRN Glucagon,Human Recombinant [Glucagen Inj 1 mg Vial] 1 mg IM PRN PRN Insulin Lispro [Humalog Insulin 100 Unit/1 ml 3 ml Vial] 0 - 12 unit SUBCUT ACHSP PRN 02/26/18 22:00 Diltiazem HCl [Cardizem 30 mg Tablet] 30 mg PO NOW ONE 02/27/18 06:00 Diltiazem HCl [Cardizem 30 mg Tablet] 30 mg PO Q8 02/27/18 10:00 Enoxaparin Sodium [Lovenox Inj 40 mg/0.4 ml Disp.syrin] 40 mg SUBCUT DAILY 02/27/18 22:00 Gabapentin [Neurontin 400 mg Capsule] 400 mg PO Q8 Simvastatin [Zocor 40 mg Tablet] 40 mg PO QHS EKG x2 shows sinus tachycardia. No acute changes. In 1 EKG the V2 and V3 leads have been interchanged. The patient rhythm strip is diagnostic of supraventricular tachycardia at rate around 190 bpm. The patient's chest x-ray : Is negative. The patient pulmonary CTA shows no evidence of pulmonary emboli. There is chronic changes in the lung bases. IMPRESSION/RECOMMENDATION: 1. Paroxysmal supraventricular tachycardia. There is the first episode. Patient converted to sinus rhythm with IV Cardizem. Hence would recommend continue the patient on Cardizem. Would start the patient on Cardizem 30 mg p.o. every 8 hours, and then transition to Cardizem CD 120 mg p.o. daily, and increase as tolerated. The patient's thyroid function tests are normal. 2. Mildly elevated troponin I: This is secondary to supply-demand mismatch, due to SVT. No evidence of a non-ST elevation TN. 3. DIABETES MELLITUS, type II [id number]. Continue antidiabetic medication. 4. Hyperlipidemia: Good lipid levels on statin. Continue her current statin. Note that the LFTs are normal. 5. The patient's coronary artery risk factors are the patient's age, and diabetes mellitus, and hyperlipidemia. In view of this and the patient's SVT, would recommend that the patient have a IV Lexiscan Cardiolite stress test or exercise treadmill stress , [if the patient can exercise] with nuclear Cardiolite imaging. 6. SYSTOLIC MURMUR: We will recommend checking an echocardiogram to assess murmur, and patient's LV ejection fraction view of the patient's SVT Medications reviewed, and medication changes recommended. Discussed with attending physician on the case. Discussed with the patient. All clinical data were discussed with the patient. Medical decision making is of moderate complexity. Note 60 minutes spent on this patient, with more than 50% of time spent in direct patient care. We will follow with you.
[2018-02-28] MEDS: GABAPENTIN 400 MG CAPSULE PO SCH ×2 (05:16→13:33)
[2018-02-28 05:29] LABS: HEMATOCRIT 37.3 % (36.0-47.0); HEMOGLOBIN 12.8 g/dL (12.0-15.5); MEAN CORPUSCULAR HEMOGLOBIN 30.6 pg (27.0-33.4); MEAN CORPUSCULAR HGB CONC 34.4 g/dL (32.0-36.0); MEAN CORPUSCULAR VOLUME 89 fl (80-97); PLATELET COUNT 216 10^3/uL (150-450); RED BLOOD COUNT 4.19 10^6/uL (3.72-5.28); RED CELL DISTRIBUTION WIDTH 12.5 % (11.5-14.0); WHITE BLOOD COUNT 5.6 10^3/uL (4.0-10.5)
[2018-02-28 05:56] LABS: ANION GAP 10 (5-19); BLOOD UREA NITROGEN 9 mg/dL (7-20); CALCIUM 9.3 mg/dL (8.4-10.2); CARBON DIOXIDE 25 mmol/L (22-30); CHLORIDE 109 mmol/L (98-107); GLUCOSE 102 mg/dL (75-110); POTASSIUM 4.1 mmol/L (3.6-5.0); SODIUM 144.1 mmol/L (137-145)
[2018-02-28] MEDS ORDERED: DILTIAZEM HCL 120 MG CAP.SR.24H PO SCH (06:00)
[2018-02-28] MEDS: ENOXAPARIN SODIUM INJ 40 MG/0.4 ML DISP.SYRIN SUBCUT SCH (09:09)
[2018-02-28 13:12] VITALS: BP 129/56
--- NOTE | 2018-02-28 13:49 | PDOC DISCHARGE SUMMARY ---
General - Admit/Disc Date/PCP Admission Date/Primary Care Provider: 02/26/18 22:07 YENIFER MO MD Discharge Date: 02/28/18 - Discharge Diagnosis (1) Chest pain Is this a current diagnosis for this admission?: Yes Summary: All workup negatives follow with the outpatients cardiology (2) Hypertension Is this a current diagnosis for this admission?: Yes Summary: Stable (3) Hyperlipidemia Is this a current diagnosis for this admission?: Yes Summary: continue to statin (4) Type 2 diabetes mellitus Is this a current diagnosis for this admission?: Yes Summary: Continues to Metformin (5) Chronic back pain Is this a current diagnosis for this admission?: Yes (6) Elevated troponin Is this a current diagnosis for this admission?: Yes Summary: No sign of ischemia per cardiology (7) Paroxysmal SVT (supraventricular tachycardia) Is this a current diagnosis for this admission?: Yes Summary: Continues to Cardizem as per cardiology follow outpatient cardiology - Additional Information Resuscitation Status: Full Code Discharge Diet: Diabetic Discharge Activity: Activity As Tolerated Prescriptions: Diltiazem HCl [Cardizem Cd 120 mg Capsule] 120 mg PO Q12A #60 cap.sr.24h Home Medications: Gabapentin [Neurontin 400 mg Capsule] 400 mg PO Q8 02/27/18 Loratadine [Claritin 10 mg Tablet] 10 mg PO DAILY 02/27/18 Metformin HCl [Glucophage 500 mg Tablet] 500 mg PO BID 02/27/18 Montelukast Sodium [Singulair 10 mg Tablet] 10 mg PO QPM 02/27/18 Simvastatin [Zocor 40 mg Tablet] 40 mg PO QHS 02/27/18 Diltiazem HCl [Cardizem Cd 120 mg Capsule] 120 mg PO Q12A #60 cap.sr.24h History of Present Illness History of Present Illness: LYNDSEY BILLINGSLEY is a 57 year old female This is a 57-year-old female with a history of the type 2 diabetes mellitus recent A1c is 6.4 history of the hypertension's history of the hyperlipidemia with the recent LDL is less than 100 and a history of the chronic back issues came to the emergency department with a sudden onset of the shortness of the breath and palpitations and a chest pain In the emergency department patient's found to SVT with a heart rate is 190 and patient is giving the Cardizem 25 mg and converted to the sinus rhythm Patient CT angiogram is negative Patient's initial troponins were 0.06 and the second 1 is 0.132 and the ER physician discussed with the Dr. Valdivia and suggest to monitor the patient here When I saw the patient patient heart rate is all normal denied any chest pain denied any shortness of the breath Patient is denied any using any cihw-ebj-luzouwj medications Patient is denied any alcohol Patient denied any heart disease in the past Hospital Course Hospital Course: This is a 57-year-old female past medical problem above came to the emergency room with the tachycardia and find out from supraventricular tachycardia patient was giving the IV Cardizem and converted to sinus rhythm Patient CT angiogram was negative Patient seen by the cardiology Dr. Valdivia and put on a Cardizem p.o. Patient's cardiac enzyme was elevated but is mostly a mismatch per cardiology due to the tachycardia follow outpatients for the stress test Patient otherwise denied any chest pain denied any shortness of the breath patient's feeling much better Patient's walk in the hallway without any problems and patient heart rate is stable Patient is discharged home with the stable conditions Physical Exam Vital Signs: Temp Pulse Resp BP Pulse Ox 97.6 F 62 16 129/56 H 100 02/28/18 12:00 02/28/18 12:00 02/28/18 12:00 02/28/18 12:00 02/28/18 12:00 Intake & Output 02/27/18 02/28/18 03/01/18 06:59 06:59 06:59 Intake Total 1000 2386 355 Balance 1000 2386 355 Weight 90.4 kg 91.7 kg General appearance: PRESENT: no acute distress, well-developed, well-nourished Head exam: PRESENT: atraumatic, normocephalic Eye exam: PRESENT: conjunctiva pink, EOMI, PERRLA. ABSENT: scleral icterus Ear exam: PRESENT: normal external ear exam Mouth exam: PRESENT: moist, tongue midline Neck exam: PRESENT: full ROM. ABSENT: carotid bruit, JVD, lymphadenopathy, thyromegaly Respiratory exam: PRESENT: clear to auscultation diana Cardiovascular exam: PRESENT: RRR. ABSENT: diastolic murmur, rubs, systolic murmur Pulses: PRESENT: normal dorsalis pedis pul, +2 pedal pulses bilateral Vascular exam: PRESENT: normal capillary refill GI/Abdominal exam: PRESENT: normal bowel sounds, soft. ABSENT: distended, guarding, mass, organolmegaly, rebound, tenderness Rectal exam: PRESENT: deferred Extremities exam: ABSENT: pedal edema Musculoskeletal exam: PRESENT: ambulatory Neurological exam: PRESENT: alert, awake, oriented to person, oriented to place , oriented to time, oriented to situation, CN II-XII grossly intact. ABSENT: motor sensory deficit Psychiatric exam: PRESENT: appropriate affect, normal mood. ABSENT: homicidal ideation, suicidal ideation Skin exam: PRESENT: dry, intact, warm. ABSENT: cyanosis, rash Results Laboratory Results: 02/28/18 04:14 02/28/18 04:14 02/28/18 02/28/18 04:14 04:14 WBC 5.6 RBC 4.19 Hgb 12.8 Hct 37.3 MCV 89 MCH 30.6 MCHC 34.4 RDW 12.5 Plt Count 216 Sodium 144.1 Potassium 4.1 Chloride 109 H Carbon Dioxide 25 Anion Gap 10 BUN 9 Creatinine 0.59 Est GFR ( Amer) > 60 Est GFR (Non-Af Amer) > 60 Glucose 102 Calcium 9.3 02/26/18 02/26/18 02/26/18 22:12 22:12 23:20 Creatine Kinase Cancelled 91 CK-MB (CK-2) Cancelled Troponin I Cancelled 02/26/18 02/27/18 02/27/18 23:20 05:19 05:19 Creatine Kinase 98 CK-MB (CK-2) 0.51 0.75 Troponin I 0.132 0.119 02/27/18 02/27/18 02/28/18 11:43 11:43 04:14 Creatine Kinase 108 CK-MB (CK-2) 0.66 Troponin I 0.048 0.025 Impressions: Chest X-Ray 02/26/18 20:25 IMPRESSION: No acute abnormality is identified. Chest/Abdomen CTA 02/26/18 22:00 IMPRESSION: Cardiomegaly. Negative for pulmonary embolus, thoracic aortic aneurysm, or dissection. Minor scarring in the lung bases. Fatty infiltrative change to the liver. Small hiatal hernia TECHNICAL DOCUMENTATION: Quality ID # [id number]: Final reports with documentation of one or more dose reduction techniques (e.g., Automated exposure control, adjustment of the mA and/or kV according to patient size, use of iterative reconstruction technique) copyright 2011 [employer]- All Rights Reserved Qualifiers - * PATIENT BEING DISCHARGED WITH ANY OF THE FOLLOWING DIAGNOSIS: No VTE patient discharged on overlapping Therapy?: Yes Plan Time Spent: Greater than 30 Minutes - Continues current medications follow outpatients cardiology following office 1 week
--- NOTE | 2018-02-28 21:28 | EKG REPORT ---
SEVERITY:- NORMAL ECG - SINUS RHYTHM : Confirmed by: Sara Valdivia MD 28-Feb-2018 21:27:33
== END 2018-02-28 14:35 | disposition home or self-care (01) | DRG 310 ==
LOC: ER 20:15 → EH 22:07 → 3N 02-27 01:02
PROVIDERS: ADMIT Family Medicine; ATTEND Family Medicine
PROC: 5A2204Z Restoration of Cardiac Rhythm, Single (ICD-10-PCS; principal; 2018-02-26)
DX: I47.1 Supraventricular tachycardia (principal); R01.1 Cardiac murmur, unspecified; E11.8 Type 2 diabetes mellitus with unspecified complications; J45.909 Unspecified asthma, uncomplicated; E78.5 Hyperlipidemia, unspecified; I10 Essential (primary) hypertension; M54.9 Dorsalgia, unspecified; M19.90 Unspecified osteoarthritis, unspecified site
CPT/HCPCS: 36415; 71045; 71275; 80048; 80053; 80061; 82550; 82553; 82962; 83036; 83735; 83880; 84439; 84443; 84481; 84484; 85025; 85027; 93005; 93010; 96374; 99291; J1650; J3490; J7030

== ENCOUNTER → 2018-05-02 | Outpatient (CLI) | payer MEDICAID ==
[2018-05-02 14:32] LABS: ABSOLUTE BASOPHILS # (AUTO) 0.1 10^3/uL (0.0-0.2); ABSOLUTE LYMPHOCYTES (AUTO) 1.9 10^3/uL (0.5-4.7); ABSOLUTE MONOCYTES (AUTO) 0.5 10^3/uL (0.1-1.4); ABSOLUTE NEUT (AUTO) 2.9 10^3/uL (1.7-8.2); EOSINOPHILS % (AUTO) 0.8 % (0-6); HEMATOCRIT 41.4 % (36.0-47.0); HEMOGLOBIN 14.2 g/dL (12.0-15.5); LYMPHOCYTES % (AUTO) 34.7 % (13-45); MEAN CORPUSCULAR HEMOGLOBIN 30.3 pg (27.0-33.4); MEAN CORPUSCULAR HGB CONC 34.2 g/dL (32.0-36.0); MEAN CORPUSCULAR VOLUME 89 fl (80-97); MONOCYTES % (AUTO) 9.4 % (3-13); PLATELET COUNT 269 10^3/uL (150-450); RED BLOOD COUNT 4.66 10^6/uL (3.72-5.28); RED CELL DISTRIBUTION WIDTH 12.5 % (11.5-14.0); SEGMENTED NEUTROPHILS % (AUTO) 54.1 % (42-78); TOTAL CELLS COUNTED % (AUTO) 100 %; WHITE BLOOD COUNT 5.3 10^3/uL (4.0-10.5)
[2018-05-02 14:39] LABS: INTERNATIONAL RATION (INR) 0.96; PROTHROMBIN TIME 13.3 SEC (11.4-15.4)
[2018-05-02 14:40] LABS: PARTIAL THROMBOPLASTIN TIME 28.8 SEC (23.5-35.8)
[2018-05-02 15:01] LABS: ANION GAP 11 (5-19); BLOOD UREA NITROGEN 14 mg/dL (7-20); CARBON DIOXIDE 28 mmol/L (22-30); CHLORIDE 104 mmol/L (98-107); GLUCOSE 149 mg/dL (75-110); POTASSIUM 4.5 mmol/L (3.6-5.0); SODIUM 142.8 mmol/L (137-145)
== END ==
LOC: LAB 14:10
PROVIDERS: ATTEND Specialist
DX: R01.1 Cardiac murmur, unspecified (principal); R07.9 Chest pain, unspecified; I10 Essential (primary) hypertension; E11.9 Type 2 diabetes mellitus without complications; E78.5 Hyperlipidemia, unspecified; R94.30 Abnormal result of cardiovascular function study, unspecified; Z79.899 Other long term (current) drug therapy
CPT/HCPCS: 36415; 80051; 82565; 82947; 83735; 84520; 85025; 85610; 85730

== ENCOUNTER → 2018-11-29 | Outpatient (CLI) | payer MEDICAID ==
--- NOTE | 2018-11-29 13:23 | RADIOLOGY REPORT (SQ) ---
EXAM DESCRIPTION: ANKLE LEFT COMPLETE COMPLETED DATE/TIME: 11/29/2018 12:31 pm REASON FOR STUDY: M25.572 PAIN IN LEFT ANKLE AND JOINTS OF LEFT FOOT M25.572 PAIN IN LEFT ANKLE AND JOINTS OF LEFT FOOT COMPARISON: None. NUMBER OF VIEWS: Three views. TECHNIQUE: AP, lateral, and oblique radiographic images acquired of the left ankle. LIMITATIONS: None. FINDINGS: MINERALIZATION: Normal. BONES: No fracture. Small calcaneal spurs are present. JOINTS: No effusions. SOFT TISSUES: No soft tissue swelling. No foreign body. OTHER: No other significant finding. IMPRESSION: Calcaneal spurs. No acute abnormality in the ankle. TECHNICAL DOCUMENTATION: JOB ID: [id number] [employer]- All Rights Reserved Reading location - IP/workstation name: [email or web address]
== END ==
LOC: RAD 12:17
PROVIDERS: ATTEND Physician Assistant
DX: M25.572 Pain in left ankle and joints of left foot (principal)

== ENCOUNTER 2019-02-11 06:27 | Day surgery (SDC) | payer MEDICARE, MEDICAID ==
[~2019-02-11 06:27] MED LIST changes: -ACETAMINOPHEN 325 MG TABLET PO PRN; +BUPIVACAINE HCL 0.75% INJ/PF (7.5 MG/1 ML) 10 ML SDV OS PRN; +KETOROLAC TROMETHAMINE 0.45% 4 DROP/0.4 ML DROPERETTE OS PRN; -LIDOCAINE 0.5% INJ-PF (5 MG/ML) 50 ML SDV SUBCUT PRN; +LIDOCAINE 4% INJ/PF (40 MG/ML) 5 ML AMPUL OS PRN; -NORMAL SALINE 1000 ML (RENAL PATIENTS) IV PRN; -VANCOMYCIN HCL 1,000 MG in DEXTROSE 5%-WATER 250 ML IV PRN
[2019-02-11] MEDS ORDERED: MIDAZOLAM 2 MG/2 ML INJ ONE (06:41)
[2019-02-11] MEDS ORDERED: FENTANYL CITRATE INJ/PF 100 MCG/2 ML AMPUL ONE (06:41)
[2019-02-11] MEDS: BESIFLOXACIN HCL 0.6% OPH SUSP 5 ML BOTTLE OS PRN ×4 (07:08→08:24)
[2019-02-11] MEDS: TROPICAMIDE 1% OPH SOLN 15 ML OS PRN ×3 (07:08→07:28)
[2019-02-11] MEDS: CYCLOPENTOLATE 0.2%/PHENYLEPHRINE 1% OPH SOLN 2 ML OS PRN ×3 (07:08→07:28)
[2019-02-11] MEDS: TETRACAINE HCL 0.5% OPH SOLN 4 ML OS PRN ×3 (07:09→07:56)
[2019-02-11] MEDS ORDERED: EPINEPHRINE INJ/PF 1 MG/1 ML AMPULE ONE (07:09)
[2019-02-11] MEDS ORDERED: CHONDR SU A NA/HYALUR INTRAOC KIT (SURGICARE) ONE (07:09)
[2019-02-11] MEDS ORDERED: LIDOCAINE 1% INJ-PF (10 MG/ML) 30 ML SDV ONE (07:09)
[2019-02-11] MEDS: DORZOLAMIDE HCL 2%/TIMOLOL MALEAT 0.5% OPH SOLN 10 ML OS PRN ×2 (08:24)
--- NOTE | 2019-02-11 11:13 | Operative Report ---
Operative Report-[facility] Operative Report: DATE OF SURGERY: 02/11/2019 PREOPERATIVE DIAGNOSIS: CATARACT, LEFT EYE. POSTOPERATIVE DIAGNOSIS: CATARACT, LEFT EYE. PROCEDURE PERFORMED: PHACOEMULSIFICATION WITH POSTERIOR CHAMBER INTRAOCULAR LENS, LEFT EYE. Intraocular Lens Model : SN 60 WF 24.0 Total Phaco Time: 2.29 CDE SURGEON: JOCELYNE TAYLOR MD ANESTHESIA: TOPICAL WITH MAC. INDICATIONS FOR SURGERY: Difficultly driving at night PROCEDURE: The patient was brought to the Operating Room and placed on the operative table. Following tetracaine drops, topical anesthesia was administered. This consisted of instrument wipe pledgets soaked in a solution of 4% Xylocaine mixed with 0.75% Marcaine in a 1:2 ratio. A 2 x 1 cm pledget was placed in the superior fornix. A 1 x 1 cm pledget was placed in the inferior fornix. The eye was patched shut for 5 minutes. The patch was removed. The eye was sterilely prepped and draped in the usual manner. Lid speculum was placed in the eye. The pledgets were removed. 4-0 black silk sutures were placed around the superior and the inferior rectus muscles to be used as traction. A conjunctival peritomy was made at the 10 o'clock position. Hemostasis was obtained with bipolar cautery. A posterior limbal groove was created using a crescent knife and dissected anteriorly towards the cornea. A sharp point blade was used to create a paracentesis site at the 2 o'clock position. 0.2 cc non preserved Lidocaine was injected into the anterior chamber. A 2.4 mm keratome was used to enter the anterior chamber through the groove. Viscoelastic was injected into the anterior chamber. An anterior capsulotomy was performed using Utrata forceps in a capsulorrhexis fashion. Hydrodissection and hydrodelineation were performed. Phacoemulsification was performed in [id number] technique. Following this, the I/A unit was used to remove residual cortex. Viscoelastic was injected into the capsular bag. The Intraocular lens was placed in the capsular bag. The I/A unit was used to remove residual viscoelastic. The wound was seen to be watertight under high and low pressure, and no sutures were placed. The intraocular lens was well centered. The pressure was adjusted in the eye to normal pressure. The 4-0 black silk sutures and lid speculum were removed. The eye was shielded after Besivance and Cosopt drops were placed. The patient tolerated the procedure well and was sent to the Recovery Room in good condition.
== END 2019-02-11 09:01 | disposition home or self-care (01) ==
LOC: SC 06:27
PROVIDERS: ATTEND Ophthalmology
DX: H25.813 Combined forms of age-related cataract, bilateral (principal); H40.1131 Primary open-angle glaucoma, bilateral, mild stage; E11.9 Type 2 diabetes mellitus without complications; E78.00 Pure hypercholesterolemia, unspecified; Z88.0 Allergy status to penicillin; Z79.899 Other long term (current) drug therapy; Z79.84 Long term (current) use of oral hypoglycemic drugs; I48.91 Unspecified atrial fibrillation
CPT/HCPCS: 66984; 82962; V2632; J2250; J3490 ×5; A9270; J0171; J3010; 142

== ENCOUNTER 2019-02-28 07:14 | Day surgery (SDC) | payer MEDICARE, MEDICAID ==
[~2019-02-28 07:14] MED LIST changes: +BUPIVACAINE HCL 0.75% INJ/PF (7.5 MG/1 ML) 10 ML SDV OD PRN; -BUPIVACAINE HCL 0.75% INJ/PF (7.5 MG/1 ML) 10 ML SDV OS PRN; +FENTANYL CITRATE INJ/PF 100 MCG/2 ML AMPUL ONE; +KETOROLAC TROMETHAMINE 0.45% 4 DROP/0.4 ML DROPERETTE OD PRN; -KETOROLAC TROMETHAMINE 0.45% 4 DROP/0.4 ML DROPERETTE OS PRN; +LIDOCAINE 4% INJ/PF (40 MG/ML) 5 ML AMPUL OD PRN; -LIDOCAINE 4% INJ/PF (40 MG/ML) 5 ML AMPUL OS PRN; +MIDAZOLAM 2 MG/2 ML INJ ONE; +ONDANSETRON HCL INJ/PF 4 MG/2 ML SDV ONE
[2019-02-28] MEDS: TROPICAMIDE 1% OPH SOLN 15 ML OD PRN ×3 (07:50→08:10)
[2019-02-28] MEDS: CYCLOPENTOLATE 0.2%/PHENYLEPHRINE 1% OPH SOLN 2 ML OD PRN ×3 (07:50→08:10)
[2019-02-28] MEDS: BESIFLOXACIN HCL 0.6% OPH SUSP 5 ML BOTTLE OD PRN ×4 (07:50→08:49)
[2019-02-28] MEDS: TETRACAINE HCL 0.5% OPH SOLN 4 ML OD PRN ×4 (07:51→08:22)
[2019-02-28] MEDS: LIDOCAINE 1% INJ-PF (10 MG/ML) 30 ML SDV ONE ×2 (08:36)
[2019-02-28] MEDS: EPINEPHRINE INJ/PF 1 MG/1 ML AMPULE ONE ×2 (08:36)
[2019-02-28] MEDS: CHONDR SU A NA/HYALUR INTRAOC KIT (SURGICARE) ONE ×2 (08:36)
[2019-02-28] MEDS: DORZOLAMIDE HCL 2%/TIMOLOL MALEAT 0.5% OPH SOLN 10 ML OD PRN ×2 (08:49)
--- NOTE | 2019-02-28 11:31 | Operative Report ---
Operative Report-[facility] Operative Report: DATE OF SURGERY: 02/28/2019 PREOPERATIVE DIAGNOSIS: CATARACT, RIGHT EYE. POSTOPERATIVE DIAGNOSIS: CATARACT, RIGHT EYE. PROCEDURE PERFORMED: PHACOEMULSIFICATION WITH POSTERIOR CHAMBER INTRAOCULAR LENS, RIGHT EYE. Intraocular Lens Model : [id number] 24.5 Total Phaco Time: 4.11 CDE SURGEON: JOCELYNE TAYLOR MD ANESTHESIA: TOPICAL WITH MAC. INDICATIONS FOR SURGERY: Optical imbalance after cataract surgery on the left eye difficulty reading TV. PROCEDURE: The patient was brought to the Operating Room and placed on the operative table. Following tetracaine drops, topical anesthesia was administered. This consisted of instrument wipe pledgets soaked in a solution of 4% Xylocaine mixed with 0.75% Marcaine in a 1:2 ratio. A 2 x 1 cm pledget was placed in the superior fornix. A 1 x 1 cm pledget was placed in the inferior fornix. The eye was patched shut for 5 minutes. The patch was removed. The eye was sterilely prepped and draped in the usual manner. Lid speculum was placed in the eye. The pledgets were removed. 4-0 black silk sutures were placed around the superior and the inferior rectus muscles to be used as traction. A conjunctival peritomy was made at the 10 o'clock position. Hemostasis was obtained with bipolar cautery. A posterior limbal groove was created using a crescent knife and dissected anteriorly towards the cornea. A sharp point blade was used to create a paracentesis site at the 2 o'clock position. 0.2 cc non preserved Lidocaine was injected into the anterior chamber. A 2.4 mm keratome was used to enter the anterior chamber through the groove. Viscoelastic was injected into the anterior chamber. An anterior capsulotomy was performed using Utrata forceps in a capsulorrhexis fashion. Hydrodissection and hydrodelineation were performed. Phacoemulsification was performed in [id number] technique. Following this, the I/A unit was used to remove residual cortex. Viscoelastic was injected into the capsular bag. The Intraocular lens was placed in the capsular bag. The I/A unit was used to remove residual viscoelastic. The wound was seen to be watertight under high and low pressure, and no sutures were placed. The intraocular lens was well centered. The pressure was adjusted in the eye to normal pressure. The 4-0 black silk sutures and lid speculum were remove d. The eye was shielded after Besivance and Cosopt drops were placed. The patient tolerated the procedure well and was sent to the Recovery Room in good condition.
== END 2019-02-28 09:28 | disposition home or self-care (01) ==
LOC: SC 07:14
PROVIDERS: ATTEND Ophthalmology
DX: H25.811 Combined forms of age-related cataract, right eye (principal); Z96.1 Presence of intraocular lens; J45.909 Unspecified asthma, uncomplicated; I10 Essential (primary) hypertension; E11.9 Type 2 diabetes mellitus without complications; Z79.84 Long term (current) use of oral hypoglycemic drugs; Z79.899 Other long term (current) drug therapy; Z88.0 Allergy status to penicillin; I48.91 Unspecified atrial fibrillation
CPT/HCPCS: 66984; 82962; V2632; J2250; J3490 ×5; A9270; J0171; J3010; J2405; 142